=== PATIENT | male | born 1990 | race Two or more races ===

== ENCOUNTER 2017-12-29 22:38 | Emergency (ER) | payer SELFPAY ==
[2017-12-29 22:47] VITALS: RESP 18; TEMP 98.1
--- NOTE | 2017-12-29 23:24 | ED PDOC ---
HPI: Psych/Substance Abuse Time Seen by Provider: 12/29/17 22:57 Chief Complaint (Nursing): Alcohol Ingestion ED Caveat: Intoxicated History Per: Patient, EMS History/Exam Limitations: no limitations Onset/Duration Of Symptoms: Other (x today) Additional Complaint(s): 27-year-old male was brought in by EMS for alcohol ingestion. Patient was found on the ground amongst bushes and plants. Patient is poorly responsive. Patient does not know how he got there. States he was drinking liquor and shots with friends this evening. Patient is unclear how many drinks he had. Davy any injury or any drug use. Patient lives in [place], [place]. PMD: Provider TBD Past Medical History Reviewed: Historical Data, Nursing Documentation, Vital Signs Vital Signs: Last Vital Signs Temp 98.1 F 12/29/17 22:44 Pulse 89 12/29/17 22:44 Resp 18 12/29/17 22:44 BP 121/66 12/29/17 22:44 Pulse Ox 99 12/29/17 22:44 - Medical History PMH: No Chronic Diseases - Surgical History Surgical History: No Surg Hx - Family History Family History: States: Unknown Family Hx - Social History Alcohol: Social - Allergies Allergies/Adverse Reactions: Allergies Allergy/AdvReac Type Severity Reaction Status Date / Time No Known Allergies Allergy Verified 12/29/17 22:44 Review of Systems ROS Statement: Except As Marked, All Systems Reviewed And Found Negative (Caveat : Unreliable historian) Physical Exam - Reviewed Nursing Documentation Reviewed: Yes Vital Signs Reviewed: Yes - Physical Exam Appears: Positive for: In Acute Distress. Negative for: Non-toxic ((+): Intoxicated) Head Exam: Positive for: ATRAUMATIC, NORMOCEPHALIC Skin: Positive for: Warm, Dry Eye Exam: Positive for: Conjunctival injection ENT: Positive for: Pharynx Is (clear) Neck: Positive for: Painless ROM, Supple Cardiovascular/Chest: Positive for: Regular Rate, Rhythm. Negative for: Murmur Respiratory: Negative for: Accessory Muscle Use, Respiratory Distress Gastrointestinal/Abdominal: Positive for: Soft. Negative for: Tenderness Back: Positive for: Normal Inspection. Negative for: Decreased ROM Extremity: Positive for: Normal ROM. Negative for: Deformity Neurologic/Psych: Positive for: Oriented (x2), Mood/Affect (happy mood and affect), Other (slightly slurred speech). Negative for: Motor/Sensory Deficits , Facial Droop - ECG O2 Sat by Pulse Oximetry: 99 (RA) Pulse Ox Interpretation: Normal Medical Decision Making Medical Decision Making: Time: 22:58 Impression(s): Intoxication, Clinically sober Plan: - Alcohol Serum Stat - Glucose, Blood, POC STAT Glucose, Blood, POC reveals 92 mg/DL [within range] Patient signed out to Dr. Christian @ 00:00, pending sobriety. Scribe Attestation: Documented by Yazan Linn, acting as a scribe for Hue Lucero MD. Provider Scribe Attestation: All medical record entries made by the Scribe were at my direction and personally dictated by me. I have reviewed the chart and agree that the record accurately reflects my personal performance of the history, physical exam, medical decision making, and the department course for this patient. I have also personally directed, reviewed, and agree with the discharge instructions and disposition. Disposition - Clinical Impression Clinical Impression: Alcohol abuse with intoxication - Patient ED Disposition Is Patient to be Admitted: Transfer of Care - Disposition Disposition: Transfer of Care Disposition Time: 00:00 Condition: STABLE Patient Signed Over To: John Christian (pending sobriety)
--- NOTE | 2017-12-30 00:17 | ED PDOC ---
- ECG O2 Sat by Pulse Oximetry: 99 (RA) Pulse Ox Interpretation: Normal Medical Decision Making Medical Decision Making: Patient signed out to me by Dr. Lucero @ 00:00, pending sobriety. 0420 Patient is alert and awake. Ambulatory with steady gait. Scribe Attestation: Documented by Yazan Linn, acting as a scribe for John Christian MD. Provider Scribe Attestation: All medical record entries made by the Scribe were at my direction and personally dictated by me. I have reviewed the chart and agree that the record accurately reflects my personal performance of the history, physical exam, medical decision making, and the department course for this patient. I have also personally directed, reviewed, and agree with the discharge instructions and disposition. Disposition - Clinical Impression Clinical Impression: Alcohol abuse with intoxication - POA Present On Arrival: None - Disposition Referrals: [facility] [Outside] Disposition: Routine/Home Disposition Time: 04:24 Condition: GOOD Instructions: Effects of Alcohol on Your Health
[2017-12-30 04:38] VITALS: BP 100/68; PULSE 78
[2017-12-31 14:20] VITALS: O2SAT 99
== END 2017-12-30 04:38 | disposition home or self-care (01) ==
LOC: H.ER 22:38
DX: F10.129 Alcohol abuse with intoxication, unspecified (principal)
CPT/HCPCS: 82948; 99283; G0480